=== PATIENT | male | born 1985 | race Caucasian/White ===

== ENCOUNTER 2023-11-30 00:58 | Emergency (ER) | payer OTHER ==
[~2023-11-30] VITALS: Ht 170.2 cm; Wt 99.8 kg
[2023-11-30] MEDS ORDERED: KETOROLAC TROMETHAMINE 30 MG INJ ONE (03:39)
[2023-11-30] MEDS: KETOROLAC TROMETHAMINE 30 MG INJ IM ONE (03:46)
[2023-11-30 05:12] LABS: *BILIRUBIN,URIN NEGATIVE (NEGATIVE); *CLARITY,URINE CLEAR (CLEAR); *COLOR,URINE YELLOW (YELLOW); *KETONES,URINE NEGATIVE (NEGATIVE); *PROTEIN,URINE NEGATIVE (NEGATIVE); *UROBILINOGEN,URINE 0.2 E.U./dl (NORMAL); LEUKOCYTE ESTERASE ,URINE NEGATIVE (NEGATIVE); NITRITE, URINE NEGATIVE (NEGATIVE); PH,URINE 5.5 (5.0-8.0); UGLUCOSE NEGATIVE (NEGATIVE)
[2023-11-30 05:37] LABS: *AMPHETAMINE, URINE NEGATIVE (NEGATIVE); *BARBITURATE, URINE NEGATIVE (NEGATIVE); *BENZODIAZEPINE, URINE NEGATIVE (NEGATIVE); *CANNABINOID, URINE POSITIVE (NEGATIVE); *COCCAINE, URINE POSITIVE (NEGATIVE); *OPIATE, URINE NEGATIVE (NEGATIVE); *PHENCYCLIDINE SCREEN,URINE NEGATIVE (NEGATIVE)
[2023-11-30 05:52] LABS: *BLOOD, URINE NEGATIVE (NEGATIVE)
[2023-11-30 05:54] LABS: FENTANYL, URINE NEGATIVE (NEGATIVE)
[2023-11-30 06:04] VITALS: BP 126/78; TEMP 98.5; O2SAT 98
== END 2023-11-30 06:05 | disposition home or self-care (01) ==
LOC: ER 01:07
DX: M54.50 Low back pain, unspecified (principal); F17.200 Nicotine dependence, unspecified, uncomplicated
CPT/HCPCS: 99285; 72131; 96372; 80307; 81003; J1885; A4606; A4663